=== PATIENT | male | born 1975 | race Caucasian/White ===

== ENCOUNTER 2024-12-30 22:21 | Inpatient (IN) | payer OTHER ==
[~2024-12-30] VITALS: Ht 182.9 cm; Wt 74.8 kg
[2024-12-30] MEDS ORDERED: SODIUM CHLORIDE 0.9% 1000ML 1,000 ML ONE (22:49)
[2024-12-30] MEDS: SODIUM CHLORIDE 0.9% 1000ML 1,000 ML IV STA (22:51)
[2024-12-30 23:07] LABS: BASOPHILS % 0.7 % (0.0-1.0); EOSINOPHILS % 2.7 % (0.0-6.0); LYMPHOCYTES % 25.1 % (18.0-39.1); MONOCYTES % 7.1 % (4.4-11.3); NEUTROPHILS % 64.0 % (38.7-80.0); RED CELL DISTRIBUTION WIDTH 11.9 % (11.7-14.4)
[2024-12-30 23:24] LABS: EST GLOMERULAR FILTRATION RATE 100.0 ML/MIN (>=60)
[2024-12-31] VITALS (8 sets, daily range): BP systolic 134–143; BP diastolic 87–96; PULSE 67–77; RESP 18–20; TEMP 97.7–98.4; O2SAT 98–99
[2024-12-31 00:07] LABS: AMPHETAMINES SCREEN,URINE NEGATIVE (NEGATIVE); CANNABINOIDS SCREEN,URINE NEGATIVE (NEGATIVE); COCAINE SCREEN,URINE NEGATIVE (NEGATIVE); METHADONE SCREEN, URINE NEGATIVE (NEGATIVE); OPIATES SCREEN,URINE NEGATIVE (NEGATIVE)
[2024-12-31] MEDS ORDERED: Morphine 4mg INJECTION 4 MG/ML INJ IV PRN (00:30)
[2024-12-31] MEDS ORDERED: DEXTROSE 50% SYRINGE 50 ML IV PRN (01:30)
[2024-12-31] MEDS ORDERED: INSULIN REGULAR, HUMAN 100 UNIT/1 ML ONE (01:31)
[2024-12-31] MEDS: INSULIN REGULAR, HUMAN 100 UNIT/1 ML SQ ONE (01:39)
[2024-12-31] MEDS: INSULIN REGULAR, HUMAN 100 UNIT/1 ML SQ SCH (08:49)
[2024-12-31] MEDS ORDERED: TOUJEO SOL300 UNIT/1 (09:59)
[2024-12-31] MEDS ORDERED: LISINOPRIL10 MG PO (09:59)
[2024-12-31] MEDS ORDERED: ROSUVASTATIN CA10 MG PO (09:59)
[2024-12-31] MEDS ORDERED: HUMALOG100 UNIT/3 (09:59)
[2024-12-31] MEDS: PIOGLITAZONE HCL 45 MG TAB PO SCH (14:00)
[2024-12-31] MEDS ORDERED: METFORMIN HCL 500 MG TAB PO SCH (17:00)
[2024-12-31] MEDS: ACETAMINOPHEN 325 MG TAB PO PRN (23:55)
[2025-01-01] VITALS (7 sets, daily range): BP systolic 116–139; BP diastolic 74–87; PULSE 62–92; RESP 18–20; TEMP 97.5–98; O2SAT 98–100
[2025-01-01] MEDS ORDERED: INSULIN GLARGINE 100 UNITS/ML VIAL SQ SCH ×2 (05:00→21:00)
[2025-01-01 05:23] LABS: BASOPHILS % 0.8 % (0.0-1.0); EOSINOPHILS % 2.4 % (0.0-6.0); LYMPHOCYTES % 23.7 % (18.0-39.1); MONOCYTES % 7.3 % (4.4-11.3); NEUTROPHILS % 65.3 % (38.7-80.0); RED CELL DISTRIBUTION WIDTH 12.2 % (11.7-14.4)
[2025-01-01 06:03] LABS: EST GLOMERULAR FILTRATION RATE 87.0 ML/MIN (>=60)
[2025-01-01] MEDS: LISINOPRIL 10 MG TAB PO SCH (09:23)
[2025-01-01] MEDS ORDERED: DEXTROSE 50% SYRINGE 50 ML IV PRN (16:45)
[2025-01-01] MEDS: INSULIN LISPRO 100 UNIT/1 ML 3ML VIAL SQ SCH (18:25)
[2025-01-01] MEDS: INSULIN GLARGINE 100 UNITS/ML VIAL SQ SCH (22:16)
[2025-01-02] VITALS: BP 129/73; PULSE 68; RESP 20; TEMP 98.1; O2SAT 98
[2025-01-02 04:00] VITALS: BP 117/77; PULSE 65; RESP 18; TEMP 97.7; O2SAT 97
[2025-01-02 06:24] LABS: CHOL/HDL RATIO 6.8 (3.9-4.7); LDL CHOLESTEROL 144.0 MG/DL (60-130)
[2025-01-02 08:55] VITALS: BP 119/84; PULSE 74; RESP 18; TEMP 98.3; O2SAT 100
[2025-01-02 09:00] VITALS: BP 119/84; PULSE 74; RESP 18; TEMP 98.3; O2SAT 100
[2025-01-02] MEDS: ONDANSETRON HCL INJ 2MG/ML 2ML 2 MG/ML VIAL IV PRN (09:53)
[2025-01-02 12:04] VITALS: BP 132/81; PULSE 82; RESP 18; TEMP 98.1; O2SAT 100
[2025-01-02] MEDS ORDERED: ACTOS45 MG PO (16:10)
[2025-01-02 16:13] VITALS: BP 123/76; PULSE 85; RESP 18; TEMP 98.6; O2SAT 100
== END 2025-01-02 17:35 | disposition home or self-care (01) | DRG 639 ==
LOC: ER 22:24 → ERHOLD 12-31 00:30 → MED/SURG 12-31 08:05 → OBSVTOIN 01-01 10:28
PROVIDERS: ADMIT Internal Medicine; ATTEND Internal Medicine
DX: E11.65 Type 2 diabetes mellitus with hyperglycemia (principal); E11.69 Type 2 diabetes mellitus with other specified complication; E78.49 Other hyperlipidemia; I10 Essential (primary) hypertension; I25.10 Atherosclerotic heart disease of native coronary artery without angina pectoris; R07.89 Other chest pain; Z79.4 Long term (current) use of insulin; Z88.8 Allergy status to other drugs, medicaments and biological substances
CPT/HCPCS: 36415; 71045; 80053; 80061; 80307; 82550; 82948; 83036; 83690; 83735; 83880; 84439; 84443; 84484; 85025; 93005; 93306; 99284; G0378; J2405; J7030